=== PATIENT | male | born 1985 | race Caucasian/White ===

== ENCOUNTER 2019-09-22 18:06 | Inpatient (IN) ==
[2019-09-22] MEDS ORDERED: Ketamine *HR* 500 MG/10 ML MDV ONE (18:13)
[2019-09-22] MEDS ORDERED: *HR* LORazepam 2 MG/ML VIAL ONE ×2 (18:17→21:31)
[2019-09-22] MEDS ORDERED: Haloperidol Lactate 5 MG/ML VIAL ONE (18:17)
[2019-09-22] MEDS ORDERED: *HR* LORazepam 2 MG/ML VIAL IM ONE (18:48)
[2019-09-22] MEDS ORDERED: Haloperidol Lactate 5 MG/ML VIAL IM ONE (18:49)
[2019-09-22] MEDS ORDERED: Ketamine *HR* 500 MG/10 ML MDV IM ONE (18:49)
[2019-09-22 18:51] LABS: Basophils # 0.1 K/mcL (0.0-0.2); Basophils % 0.6 %; Eosinophils # 0.5 K/mcL (0.0-0.6); Eosinophils % 3.4 %; Hematocrit 46.1 % (37.5-50.1); Hemoglobin 15.5 g/dL (12.9-16.9); Immature Granulocytes % 0.5 % (0-4); Lymphocytes # 4.4 K/mcL (0.6-4.6); Lymphocytes % 31.9 %; Mean Corpuscular HGB Conc 33.6 g/dL (31.6-35.5); Mean Corpuscular Hemoglobin 30.7 pg (28.0-33.3); Mean Corpuscular Volume 91.3 fL (83.0-100.0); Mean Platelet Volume 9.8 fL (9.4-12.4); Monocytes # 1.1 K/mcL (0.0-1.3); Monocytes % 7.7 %; Neutrophils # 7.7 K/mcL (1.6-8.9); Platelet Count 415 K/mcL (140-400); Red Blood Count 5.05 M/mcL (4.19-5.50); Red Cell Distribution Width 12.2 % (11.5-14.5); Segmented Neutrophils % 55.9 %; White Blood Count 13.7 K/mcL (4.3-11.1)
[2019-09-22 18:56] LABS: Bilirubin,Urine Negative (Negative); Blood,Urine Negative (Negative); Clarity,Urine Clear (Clear); Color,Urine Yellow (Yellow); Glucose,Urine (UA) Normal (Normal); Ketones,Urine Negative (Negative); Leukocyte Esterase,Urine Negative (Negative); Nitrite,Urine Negative (Negative); Protein,Urine Negative (Neg-Trace); Specific Gravity,Urine 1.013 (1.010-1.025); Urobilinogen,Urine Normal (Normal)
[2019-09-22 19:10] LABS: Acetaminophen < 10 mcg/mL (10-20); Alanine Aminotransferase 13 Units/L (7-52); Albumin 4.6 g/dL (3.5-5.7); Albumin/Globulin Ratio 1.4 (1.1-2.2); Alkaline Phosphatase 95 Units/L (34-104); Aspartate Amino Transferase 20 Units/L (13-39); BUN/Creatinine Ratio 14 (6-26); Bilirubin,Direct 0.1 mg/dL (0.0-0.2); Bilirubin,Indirect 0.2 mg/dL (0.0-1.0); Bilirubin,Total 0.3 mg/dL (0.3-1.0); Blood Urea Nitrogen 16 mg/dL (6-20); Calcium 9.5 mg/dL (8.6-10.3); Carbon Dioxide 13 mEq/L (23-29); Chloride 97 mEq/L (98-107); Chol/HDL Ratio 3.2 (0-4.9); Cholesterol 152 mg/dL (< 200); Ethanol < 10 mg/dL (Less than 10); Globulin 3.2 g/dL (2.4-3.5); Glucose 189 mg/dL (70-105); HDL Cholesterol 48 mg/dL (40-59); LDL Cholesterol,Calculated 84 mg/dL (0-99); Osmolality,Calculated 286 (280-300); Potassium 3.4 mEq/L (3.5-5.1); Salicylate < 2.5 mg/dL (15.0-30.0); Sodium 135 mEq/L (136-145); Total Protein 7.8 g/dL (6.4-8.9); Triglycerides 102 mg/dL (< 150); eGFR For African Americans > 60 (> 60); eGFR For Non-African Americans > 60 (> 60)
[2019-09-22] MEDS ORDERED: 0.9 % Sodium Chloride 1,000 ML IVC ONE ×2 (19:18→19:47)
[2019-09-22 19:25] LABS: Estimated Average Glucose 108 mg/dl
[2019-09-22 19:30] LABS: Amphetamine Screen,Urine Negative ng/mL (Cutoff=1000); Barbiturate Screen,Urine Negative ng/mL (Cutoff=200); Benzodiazepines Screen,Urine Negative ng/mL (Cutoff=200); Cannabinoid Screen,Urine Negative ng/mL (Cutoff = 50); Cocaine Screen,Urine Negative ng/mL (Cutoff= 300); Opiate Screen,Urine Negative ng/mL (Cutoff=300); Phencyclidine Screen,Urine Negative ng/mL (Cutoff=25)
[2019-09-22 19:45] LABS: Creatine Kinase 300 Units/L (30-223)
[2019-09-22] MEDS ORDERED: Naloxone 0.4 MG/ML INJ IVP PRN (19:58)
[2019-09-22] MEDS ORDERED: diazePAM 10 MG/2 ML SYRINGE IVP PRN ×2 (20:11)
[2019-09-22] MEDS: Ringers Solution, Lactated 1,000 ML IVC SCH (20:48)
[2019-09-22] MEDS ORDERED: LORazepam 20 MG in 0.9 % Sodium Chloride Excel Bg 240 ML IVC SCH (21:00)
[2019-09-22] MEDS: SODIUM CHLORIDE 0.9% IVC SCH (21:30)
[2019-09-22] MEDS: LORAZEPAM IVC SCH (21:30)
[2019-09-22] MEDS ORDERED: Haloperidol Lactate 5 MG/ML VIAL IVP ONE (21:45)
[2019-09-22] MEDS ORDERED: *HR* LORazepam 2 MG/ML VIAL IVP ONE (21:45)
[2019-09-23] MEDS: Ringers Solution, Lactated 1,000 ML IVC SCH ×3 (01:55→21:21)
[2019-09-23] MEDS: LORAZEPAM IVC SCH (07:31)
[2019-09-23] MEDS: SODIUM CHLORIDE 0.9% IVC SCH (07:31)
[2019-09-23 07:36] LABS: Hematocrit 40.2 % (37.5-50.1); Mean Corpuscular HGB Conc 34.3 g/dL (31.6-35.5); Mean Corpuscular Hemoglobin 30.7 pg (28.0-33.3); Mean Corpuscular Volume 89.3 fL (83.0-100.0); Platelet Count 222 K/mcL (140-400); Red Cell Distribution Width 12.5 % (11.5-14.5); White Blood Count 11.5 K/mcL (4.3-11.1)
[2019-09-23 07:38] LABS: Hemoglobin 13.8 g/dL (12.9-16.9)
[2019-09-23 08:37] LABS: Alanine Aminotransferase 25 Units/L (7-52); Albumin 3.3 g/dL (3.5-5.7); Albumin/Globulin Ratio 1.3 (1.1-2.2); Alkaline Phosphatase 71 Units/L (34-104); Aspartate Amino Transferase 113 Units/L (13-39); BUN/Creatinine Ratio 14 (6-26); Bilirubin,Direct 0.1 mg/dL (0.0-0.2); Bilirubin,Indirect 0.5 mg/dL (0.0-1.0); Bilirubin,Total 0.6 mg/dL (0.3-1.0); Blood Urea Nitrogen 11 mg/dL (6-20); Calcium 8.7 mg/dL (8.6-10.3); Carbon Dioxide 20 mEq/L (23-29); Chloride 107 mEq/L (98-107); Creatine Kinase 13316 Units/L (30-223); Globulin 2.5 g/dL (2.4-3.5); Glucose 77 mg/dL (70-105); Magnesium 2.1 mg/dL (1.6-2.6); Osmolality,Calculated 284 (280-300); Phosphorous 3.5 mg/dL (2.7-4.5); Potassium 4.1 mEq/L (3.5-5.1); Sodium 138 mEq/L (136-145); Total Protein 5.8 g/dL (6.4-8.9); eGFR For African Americans > 60 (> 60); eGFR For Non-African Americans > 60 (> 60)
[2019-09-23] MEDS ORDERED: Haloperidol Lactate 5 MG/ML VIAL IVP PRN (08:41)
[2019-09-23] MEDS ORDERED: Dexmedetomidine HCl 400 MCG/100 ML MLS IVC SCH (10:30)
[2019-09-24 05:14] LABS: Basophils % 0.4 %; Eosinophils # 0.3 K/mcL (0.0-0.6); Eosinophils % 2.6 %; Hematocrit 40.5 % (37.5-50.1); Hemoglobin 13.3 g/dL (12.9-16.9); Immature Granulocytes % 0.3 % (0-4); Lymphocytes # 3.7 K/mcL (0.6-4.6); Lymphocytes % 34.6 %; Mean Corpuscular HGB Conc 32.8 g/dL (31.6-35.5); Mean Corpuscular Hemoglobin 30.8 pg (28.0-33.3); Mean Corpuscular Volume 93.8 fL (83.0-100.0); Mean Platelet Volume 9.9 fL (9.4-12.4); Monocytes # 1.1 K/mcL (0.0-1.3); Neutrophils # 5.7 K/mcL (1.6-8.9); Platelet Count 284 K/mcL (140-400); Red Blood Count 4.32 M/mcL (4.19-5.50); Red Cell Distribution Width 12.4 % (11.5-14.5); Segmented Neutrophils % 52.1 %; White Blood Count 10.8 K/mcL (4.3-11.1)
[2019-09-24 05:33] LABS: BUN/Creatinine Ratio 16 (6-26); Blood Urea Nitrogen 12 mg/dL (6-20); Calcium 8.5 mg/dL (8.6-10.3); Carbon Dioxide 25 mEq/L (23-29); Chloride 109 mEq/L (98-107); Glucose 97 mg/dL (70-105); Magnesium 1.8 mg/dL (1.6-2.6); Osmolality,Calculated 280 (280-300); Potassium 2.6 mEq/L (3.5-5.1); Sodium 135 mEq/L (136-145); eGFR For African Americans > 60 (> 60); eGFR For Non-African Americans > 60 (> 60)
[2019-09-24 05:44] LABS: Creatine Kinase 9245 Units/L (30-223)
[2019-09-24] MEDS ORDERED: 0.9 % Sodium Chloride w KCl 40 MEQ/1,000 ML MLS IVC SCH (07:15)
[2019-09-24 17:17] VITALS: BP 101/47
== END 2019-09-24 19:30 | disposition left against medical advice (07) | DRG 770 ==
LOC: ICNU 18:06 → EMEROOARM 18:06 → SUATTDRO 20:08 → ICNU 21:18 → 2NNU 23:04
PROVIDERS: ADMIT Internal Medicine; ATTEND Internal Medicine